=== PATIENT | male | born 1985 | race Caucasian/White ===

== ENCOUNTER 2020-05-08 14:24 | Emergency (ER) | payer BC, SELFPAY ==
[2020-05-08 14:25] VITALS: BP 149/93; PULSE 88; RESP 18; TEMP 36.8; O2SAT 97; BMI 27.7
--- NOTE | 2020-05-08 15:01 | HMH.EDGENADL ---
ED Disposition Clinical Impression: Dizziness Upper respiratory infection Qualifiers: URI type: unspecified viral URI Qualified Code(s): J06.9 - Acute upper respiratory infection, unspecified Disposition: Home, Self-Care Condition on Discharge: Good Instructions: DI for Viral Upper Respiratory Infection -- Adult Additional Instructions: [id number] cold medications as needed. Follow-up with primary care provider if not improving in 4 to 5 days. Quarantine yourself until you obtain your COVID-19 test result. You will be called with the result. Referrals: PCP,No [Primary Care Provider] - - Critical Care Critical Care Time: No Attestation: On , the high probability of a clinically significant, sudden or life threatening deterioration of the following system(s) required my full and direct attention, intervention and personal management. The time I documented below is in addition to time spent performing reported procedures but includes the following listed in this critical care notation. Medical Decision Making - Pipo Inquiry Pt receiving controlled substance: No Vital Signs: 05/08/20 14:25 05/08/20 15:50 05/08/20 16:00 Temperature 98.2 F Temperature Source Oral Pulse Rate [Left Radial] 88 74 64 Respiratory Rate 18 Blood Pressure [Right Arm] 149/93 H 133/79 128/73 Blood Pressure Mean [Right Arm] 111 97 91 Blood Pressure Source [Right Arm] Automatic Cuff Automatic Cuff Automatic Cuff Blood Pressure Position [Right Arm] Sitting Sitting 02 Sat by Pulse Oximetry 97 94 L 94 L Oxygen Delivery Method Room Air Room Air Room Air - Lab Data Lab Results 05/08/20 15:30: WBC 7.6, RBC 5.47, Hgb 15.2, Hct 47.0, MCV 85.9, MCH 27.8, MCHC 32.4, RDW 13.5, Plt Count 219, MPV 7.8, Neut % (Auto) 59.8, Lymph % (Auto) 32.2, [place] % (Auto) 6.5, Eos % (Auto) 1.0, Baso % (Auto) 0.5, Neut # (Auto) 4.5, Lymph # (Auto) 2.5, [place] # (Auto) 0.5, Eos # (Auto) 0.1, Baso # (Auto) 0.0 05/08/20 15:30: Sodium 138, Potassium 4.3, Chloride 104, Carbon Dioxide 27, Anion Gap 11.3, BUN 15, Creatinine 0.90, Estimated Creat Clear 157, Estimated GFR 97, Est GFR ( Amer) 118, Glucose 113 H, Calcium 9.3 Result diagrams: 05/08/20 15:30 05/08/20 15:30 Orders (Tests/Meds): ORDERS Category Date Time Status Covid-19 Nasal PCR ([facility]) Routine Lab 05/08/20 15:30 Received - Radiology Data #1 Image(s): Chest Image Reviewed: Yes I have reviewed radiologist's interpretation PROCEDURE: XR CHEST 2V CLINICAL HISTORY: cough COMPARISON: No exams were available for comparison FINDINGS: The cardiomediastinal silhouette and pulmonary vascularity are within normal limits. The lungs are clear without infiltrates, suspicious nodules, or pleural effusions. No acute bony abnormalities. IMPRESSION: No acute findings. Dictated by: Lonnie Arias MD 05/08/2020 15:45 Lonnie Arias MD in [place] 05/08/2020 15:45 - ECG Data Tracing #1 EKG interpreted by Jeff Loredo MD: Rhythm: sinus Rate: 75 [place]: normal Ectopy: none Conduction: normal ST Segment Changes: none T Wave Changes: none Q Waves: none No evidence of acute ischemia or injury General Adult HPI - General Chief complaint: Upper Respiratory Infection Stated complaint: shaky, dizzy, nausea Time Seen by Provider: 05/08/20 15:02 Mode of Arrival: Family Vehicle Limitations: No Limitations Description of Symptoms (Recalled from ER Triage Doc. by RN): Patient reports sinus drainage and cough x 3 days, states this am he woke up and felt dizzy. - History of Present Illness HPI narrative: Says yesterday he developed sinus drainage. Today it moved into his chest and he has been coughing. He says he was standing up and had a coughing spell and began seeing spots, feeling dizzy. Since then he says his vision is intermittently hazy and he feels intermittently dizzy. Currently denies chest pain, but says he has had intermittent disc
--- NOTE | 2020-05-08 15:32 | ECG_ITS ---
APPROVED REPORT Exam: Resting ECG HR:75 bpm ECG Measurements Heart Rate 75 AXES VA 158 P 44 QRSd 88 QRS 57 QT 360 T 21 QTc 402 Conclusion Normal sinus rhythm Normal ECG Electronically signed by : Dino Dsouza, 05/09/2020 08:38:38
[2020-05-08 15:43] LABS: Basophils % 0.5 % (0.1-2.0); Eosinophils # 0.1 K/mm3 (0.0-0.4); Hemoglobin 15.2 g/dL (14.1-18.0); Lymphocytes # 2.5 K/mm3 (0.7-4.5); Lymphocytes % 32.2 % (10-50); Mean Corpuscular HGB Conc 32.4 g/dL (31.8-35.4); Mean Corpuscular Hemoglobin 27.8 pg (27.0-31.2); Mean Corpuscular Volume 85.9 fl (80-94); Mean Platelet Volume 7.8 fl (7.4-10.4); Monocytes # 0.5 K/mm3 (0.1-1.0); Monocytes % 6.5 % (1.7-9.3); Neutrophils # 4.5 K/mm3 (1.8-7.8); Neutrophils % 59.8 % (37.0-80.0); Platelet Count 219 K/mm3 (142-424); Red Blood Count 5.47 M/mm3 (4.60-6.20); Red Cell Distribution Width 13.5 % (11.5-17.5); White Blood Count 7.6 K/mm3 (4.8-10.8)
[2020-05-08 15:50] VITALS: BP 133/79; PULSE 74; O2SAT 94
[2020-05-08 15:55] LABS: Anion Gap 11.3 mEq/L (5-15); Blood Urea Nitrogen 15 mg/dl (9-20); Calcium 9.3 mg/dl (8.4-10.2); Carbon Dioxide 27 mmol/L (22.0-30.0); Chloride 104 mmol/L (98-107); Creatinine Clearance Estimated 157 mL/min (50-200); Estimated Glomerular Filt Rate 97 ml/min (>60); GFR (African American) 118 ML/MIN (>60); Glucose 113 mg/dl (74-100); Potassium 4.3 mmoL/L (3.5-5.1); Sodium 138 mmol/L (136-145)
[2020-05-08 16:00] VITALS: BP 128/73; PULSE 64; O2SAT 94
[2020-05-08 16:28] VITALS: BP 124/79; PULSE 83; RESP 20; TEMP 36.7; O2SAT 98
== END 2020-05-08 16:29 | disposition home or self-care (01) ==
PROVIDERS: Emergency Provider Emergency Medicine
DX: Z20.822 Contact with and (suspected) exposure to COVID-19 (principal); J06.9 Acute upper respiratory infection, unspecified
CPT/HCPCS: 71046; 80048; 85025; 93005; 99283; U0003

== ENCOUNTER 2020-06-25 21:06 | Emergency (ER) | payer BC, SELFPAY ==
[2020-06-25 21:04] VITALS: BP 127/78; PULSE 82; RESP 22; TEMP 36.9; O2SAT 100; BMI 28.5
--- NOTE | 2020-06-25 21:17 | XR_ITS ---
PROCEDURE INFORMATION: Exam: XR Chest Exam date and time: 06/25/2020 9:17 PM Age: 34 years old Clinical indication: Type not specified; Patient HX: Chest pain and anxiety. Smoker. ; Additional info: Cp TECHNIQUE: Imaging protocol: XR of the chest. Views: 2 views. COMPARISON: CR XR CHEST 2V 05/08/2020 3:02 PM FINDINGS: Lungs: Unremarkable. No consolidation. Pleural spaces: Unremarkable. No pleural effusion. No pneumothorax. Heart/Mediastinum: Unremarkable. No cardiomegaly. Bones/joints: Unremarkable. IMPRESSION: No acute findings.
--- NOTE | 2020-06-25 21:18 | ECG_ITS ---
APPROVED REPORT Exam: Resting ECG HR:79 bpm ECG Measurements Heart Rate 79 AXES GA 154 P 53 QRSd 86 QRS 82 QT 374 T 9 QTc 428 Conclusion Normal sinus rhythm Normal ECG Electronically signed by : Dino Dsouza, 06/27/2020 21:22:11
[2020-06-25 21:25] LABS: Chloride 100 mmol/L (98-107)
[2020-06-25 21:26] LABS: Potassium 4.1 mmoL/L (3.5-5.1)
[2020-06-25 21:27] LABS: Basophils # 0.1 K/mm3 (0-0.2); Basophils % 0.7 % (0.1-2.0); Eosinophils # 0.1 K/mm3 (0.0-0.4); Eosinophils % 0.5 % (0.1-12.0); Hematocrit 44.3 % (42.0-52.0); Lymphocytes # 7.5 K/mm3 (0.7-4.5); Lymphocytes % 60.1 % (10-50); Mean Corpuscular HGB Conc 33.8 g/dL (31.8-35.4); Mean Corpuscular Hemoglobin 27.9 pg (27.0-31.2); Mean Corpuscular Volume 82.4 fl (80-94); Mean Platelet Volume 7.5 fl (7.4-10.4); Monocytes # 0.8 K/mm3 (0.1-1.0); Monocytes % 6.3 % (1.7-9.3); Neutrophils # 4.1 K/mm3 (1.8-7.8); Neutrophils % 32.5 % (37.0-80.0); Platelet Count 264 K/mm3 (142-424); Red Blood Count 5.37 M/mm3 (4.60-6.20); Red Cell Distribution Width 13.6 % (11.5-17.5); White Blood Count 12.5 K/mm3 (4.8-10.8)
[2020-06-25 21:28] LABS: Blood Urea Nitrogen 19 mg/dl (9-20); Carbon Dioxide 24 mmol/L (22.0-30.0); Creatinine Clearance Estimated 142 mL/min (50-200); Estimated Glomerular Filt Rate 86 ml/min (>60); GFR (African American) 104 ML/MIN (>60); MANUAL DIFFERENTIAL MANUAL DIFFERENTIAL (MANUAL DIFF)
[2020-06-25 21:29] LABS: Alanine Aminotransferase 183 U/L (12-78); Alkaline Phosphatase 89 U/L (38-126); Aspartate Amino Transferase 86 U/L (17-59); Bilirubin,Direct 0.1 mg/dl (0.0-0.4); Bilirubin,Indirect 0.6 mg/dL (0.0-0.9); Bilirubin,Total 0.7 mg/dl (0.2-1.3); Bilirubin,Unconjugated 0.6 mg/dL (0.0-1.1); Calcium 9.4 mg/dl (8.4-10.2); Glucose 122 mg/dl (74-100); Total Protein,Serum 8.2 g/dl (6.3-8.2)
[2020-06-25 21:34] LABS: C-Reactive Protein 4.2 mg/L (0-4)
[2020-06-25 21:38] LABS: Lymphocytes % 45 % (10-50); Monocytes % 3 % (2-9); Neutrophils % 27 % (42-76); Platelet Estimate Normal; RBC Morphology Normal; Total Cells Counted 100
[2020-06-25 21:49] LABS: Troponin I < 0.01 ng/ml (0.00-0.034)
[2020-06-25 21:51] LABS: Procalcitonin 0.091 ng/mL (0.0-2.0)
--- NOTE | 2020-06-25 21:51 | HMH.EDCP ---
ED Disposition Clinical Impression: Atypical chest pain Disposition: Home, Self-Care Condition on Discharge: Good Instructions: DI for Atypical Chest Pain Additional Instructions: see pcp for follow up Referrals: PCP,No [Primary Care Provider] - - Critical Care Critical Care Time: No Attestation: On 06/25/20, the high probability of a clinically significant, sudden or life threatening deterioration of the following system(s) required my full and direct attention, intervention and personal management. The time I documented below is in addition to time spent performing reported procedures but includes the following listed in this critical care notation. Medical Decision Making - Medical Records Medical records reviewed: Yes: I reviewed the patient's medical records. - Pipo Inquiry Pt receiving controlled substance: No Vital Signs: 06/25/20 21:04 Temperature 98.4 F Temperature Source Oral Pulse Rate [Right Radial] 82 Respiratory Rate 22 Blood Pressure [Right Arm] 127/78 Blood Pressure Mean [Right Arm] 94 Blood Pressure Source [Right Arm] Automatic Cuff Blood Pressure Position [Right Arm] Sitting 02 Sat by Pulse Oximetry 100 Oxygen Delivery Method Room Air - Lab Data Lab results reviewed: Yes: I reviewed the patient's lab results. Lab Results 06/25/20 21:04: WBC 12.5 H, RBC 5.37, Hgb 15.0, Hct 44.3, MCV 82.4, MCH 27.9, MCHC 33.8, RDW 13.6, Plt Count 264, MPV 7.5, Neut % (Auto) 32.5 L, Lymph % (Auto) 60.1 H, [place] % (Auto) 6.3, Eos % (Auto) 0.5, Baso % (Auto) 0.7, Neut # (Auto) 4.1, Lymph # (Auto) 7.5 H, [place] # (Auto) 0.8, Eos # (Auto) 0.1, Baso # (Auto) 0.1, Total Counted 100, Neutrophils % (Manual) 27 L, Lymphocytes % (Manual) 45, Atypical Lymphs % 25.0, Monocytes % (Manual) 3, Platelet Estimate Normal, RBC Morphology Normal, ESR 6 06/25/20 21:04: Sodium 136, Potassium 4.1, Chloride 100, Carbon Dioxide 24, Anion Gap 16.1 H, BUN 19, Creatinine 1.00, Estimated Creat Clear 142, Estimated GFR 86, Est GFR ( Amer) 104, Glucose 122 H, Calcium 9.4, Troponin I < 0.01, C-Reactive Protein 4.2 H 06/25/20 21:04: Procalcitonin 0.091 06/25/20 21:04: Total Bilirubin 0.7, Direct Bilirubin 0.1, Conjugated Bilirubin 0.0, Indirect Bilirubin 0.6, Unconjugated Bilirubin 0.6, AST 86 H, ALT 183 H, Alkaline Phosphatase 89, Total Protein 8.2, Albumin 5.0 Result diagrams: 06/25/20 21:04 06/25/20 21:04 Orders (Tests/Meds): ED MEDICATIONS Generic Name Dose Route Start Last Admin Trade Name Freq PRN Reason Stop Dose Admin Sodium Chloride 1,000 mls @ 999 mls/hr 06/25/20 21:30 Sod Chlor 0.9% 1000ml Bag IV 06/25/20 22:30 .Q1H1M [facility]RA Sodium Chloride 8 ml 06/25/20 21:26 Sodium Chloride 0.9% 10ml Vial IV 07/25/20 21:25 NEEDED PRN dilute pepcid Discontinued Medications Generic Name Dose Route Start Last Admin Trade Name Freq PRN Reason Stop Dose Admin Famotidine 20 mg 06/25/20 21:26 06/25/20 21:34 Famotidine 20mg/2ml Vial IV 06/25/20 21:27 20 mg ONCE ONE Administration Ketorolac Tromethamine 30 mg 06/25/20 21:17 06/25/20 21:20 Ketorolac 30mg/Ml Vial IV 06/25/20 21:18 30 mg ONCE ONE Administration Metoclopramide HCl 10 mg 06/25/20 21:26 06/25/20 21:34 Metoclopramide Hcl 10mg/2ml Vial IVP 06/25/20 21:27 10 mg ONCE ONE Administration ORDERS Category Date Time Status Troponin I Q3H Lab 06/26/20 00:30 Ordered Troponin I Q3H Lab 06/26/20 03:30 Ordered - Radiology Data #1 Image(s): Chest Image Reviewed: Yes I reviewed the patient's radiology image Preliminary Findings: Normal/NAD - ECG Data Tracing #1 Normal Sinus Rhythm: Yes Ischemic changes: non-specific ST-T wave changes Medical Decision Narrative: ekg and card enz ok and hx not suggestive of card - will need op eval Chest Pain HPI - General Chief Complaint: Chest Pain Stated Complaint: Chest Pain Time Seen by Provider: 06/25/20 21:15 Mode of Arrival: EMS [facility]
[2020-06-25 22:00] LABS: Erythrocyte Sedimentation Rate 6 mm/hr (0-15)
[2020-06-25 22:24] LABS: Anion Gap 16.1 mEq/L (5-15); Sodium 136 mmol/L (136-145)
[2020-06-25 22:48] VITALS: BP 121/75; PULSE 73; RESP 18; TEMP 36.8
== END 2020-06-25 22:50 | disposition home or self-care (01) ==
PROVIDERS: Emergency Provider Emergency Medicine
DX: R07.89 Other chest pain (principal); F41.9 Anxiety disorder, unspecified; Z79.899 Other long term (current) drug therapy
CPT/HCPCS: 71046; 80048; 80076; 84145; 84484; 85007; 85025; 85651; 86140; 93005; 96365; 96375; 99283

== ENCOUNTER 2020-06-28 03:43 | Emergency (ER) | payer BC, SELFPAY ==
[2020-06-28] VITALS (8 sets, daily range): BP systolic 119–179; BP diastolic 75–106; PULSE 65–92; RESP 16–18; TEMP 36.9; O2SAT 98–100; BMI 27.7
--- NOTE | 2020-06-28 04:06 | XR_ITS ---
PROCEDURE INFORMATION: Exam: XR Chest Exam date and time: 06/28/2020 4:06 AM Age: 34 years old Clinical indication: Shortness of breath and other: Anxiety; Patient HX: Short of breath anxiety; Additional info: SOA TECHNIQUE: Imaging protocol: XR of the chest. Views: 2 views. COMPARISON: CR XR CHEST 2V 06/25/2020 9:20 PM FINDINGS: Lungs: Unremarkable. No consolidation. Pleural spaces: Unremarkable. No pleural effusion. No pneumothorax. Heart/Mediastinum: Unremarkable. No cardiomegaly. Bones/joints: Unremarkable. IMPRESSION: No acute findings.
[2020-06-28 04:25] LABS: Basophils # 0.1 K/mm3 (0-0.2); Basophils % 0.6 % (0.1-2.0); Eosinophils # 0.1 K/mm3 (0.0-0.4); Eosinophils % 1.3 % (0.1-12.0); Hematocrit 42.3 % (42.0-52.0); Hemoglobin 14.2 g/dL (14.1-18.0); Lymphocytes # 4.9 K/mm3 (0.7-4.5); Lymphocytes % 59.8 % (10-50); Mean Corpuscular HGB Conc 33.6 g/dL (31.8-35.4); Mean Corpuscular Hemoglobin 27.9 pg (27.0-31.2); Mean Corpuscular Volume 82.9 fl (80-94); Mean Platelet Volume 7.5 fl (7.4-10.4); Monocytes # 0.6 K/mm3 (0.1-1.0); Monocytes % 6.9 % (1.7-9.3); Neutrophils # 2.6 K/mm3 (1.8-7.8); Neutrophils % 31.5 % (37.0-80.0); Platelet Count 227 K/mm3 (142-424); Red Cell Distribution Width 13.5 % (11.5-17.5); White Blood Count 8.2 K/mm3 (4.8-10.8)
[2020-06-28 04:32] LABS: MANUAL DIFFERENTIAL MANUAL DIFFERENTIAL (MANUAL DIFF)
[2020-06-28 04:33] LABS: Alanine Aminotransferase 109 U/L (12-78); Albumin Level 4.5 g/dl (3.5-5.0); Albumin/Globulin Ratio 1.4 (1.1-1.8); Alkaline Phosphatase 87 U/L (38-126); Aspartate Amino Transferase 61 U/L (17-59); Bilirubin,Total 0.3 mg/dl (0.2-1.3); Blood Urea Nitrogen 15 mg/dl (9-20); Calcium 9.2 mg/dl (8.4-10.2); Carbon Dioxide 26 mmol/L (22.0-30.0); Chloride 103 mmol/L (98-107); Creatinine Clearance Estimated 157 mL/min (50-200); Estimated Glomerular Filt Rate 97 ml/min (>60); GFR (African American) 118 ML/MIN (>60); Globulin 3.2 g/dL (1.3-3.2); Glucose 99 mg/dl (74-100); Sodium 137 mmol/L (136-145); Total Protein,Serum 7.7 g/dl (6.3-8.2)
[2020-06-28 04:38] LABS: C-Reactive Protein 2.7 mg/L (0-4)
[2020-06-28 04:52] LABS: Procalcitonin 0.067 ng/mL (0.0-2.0)
--- NOTE | 2020-06-28 05:01 | HMH.EDANX ---
ED Disposition Clinical Impression: Acute anxiety Disposition: Home, Self-Care Condition on Discharge: Good Instructions: Anxiety and Panic Attacks (Alternative Therapy) Additional Instructions: see pcp for follow up Referrals: Hamzah Sibley MD [Primary Care Provider] - - Critical Care Critical Care Time: No Attestation: On 06/28/20, the high probability of a clinically significant, sudden or life threatening deterioration of the following system(s) required my full and direct attention, intervention and personal management. The time I documented below is in addition to time spent performing reported procedures but includes the following listed in this critical care notation. Medical Decision Making - Medical Records Medical records reviewed: Yes: I reviewed the patient's medical records. - Pipo Inquiry Pt receiving controlled substance: No Vital Signs: 06/28/20 03:53 06/28/20 03:54 06/28/20 04:04 Temperature 98.5 F Temperature Source Oral Pulse Rate 68 71 Pulse Rate [Left] 92 H Respiratory Rate 18 Blood Pressure 119/80 179/98 H Blood Pressure [Right Arm] 119/80 Blood Pressure Mean 90 125 Blood Pressure Mean [Right Arm] 93 Blood Pressure Source [Right Arm] Automatic Cuff Blood Pressure Position [Right Arm] Sitting 02 Sat by Pulse Oximetry 100 99 98 Oxygen Delivery Method Room Air 06/28/20 04:30 06/28/20 04:55 06/28/20 05:00 Temperature Temperature Source Pulse Rate 65 65 70 Pulse Rate [Left] Respiratory Rate Blood Pressure 176/106 H 132/84 148/86 H Blood Pressure [Right Arm] Blood Pressure Mean 125 103 102 Blood Pressure Mean [Right Arm] Blood Pressure Source [Right Arm] Blood Pressure Position [Right Arm] 02 Sat by Pulse Oximetry 100 100 Oxygen Delivery Method Room Air - Lab Data Lab results reviewed: Yes: I reviewed the patient's lab results. Lab Results 06/28/20 04:18: WBC 8.2 D, RBC 5.10, Hgb 14.2, Hct 42.3, MCV 82.9, MCH 27.9, MCHC 33.6, RDW 13.5, Plt Count 227, MPV 7.5, Neut % (Auto) 31.5 L, Lymph % (Auto) 59.8 H, [place] % (Auto) 6.9, Eos % (Auto) 1.3, Baso % (Auto) 0.6, Neut # (Auto) 2.6, Lymph # (Auto) 4.9 H, [place] # (Auto) 0.6, Eos # (Auto) 0.1, Baso # (Auto) 0.1, Total Counted 100, Neutrophils % (Manual) 28 L, Lymphocytes % (Manual) 66 H, Monocytes % (Manual) 5, Eosinophils % (Manual) 1, Platelet Estimate Normal, RBC Morphology Not Reportable, Stomatocytes 1+, ESR 3 06/28/20 04:18: Sodium 137, Potassium 4.0, Chloride 103, Carbon Dioxide 26, Anion Gap 12.0, BUN 15, Creatinine 0.90, Estimated Creat Clear 157, Estimated GFR 97, Est GFR ( Amer) 118, Glucose 99, Calcium 9.2, Total Bilirubin 0.3, AST 61 H D, ALT 109 H D, Alkaline Phosphatase 87, C-Reactive Protein 2.7 D, Total Protein 7.7, Albumin 4.5, Globulin 3.2, Albumin/Globulin Ratio 1.4, Procalcitonin 0.067 Result diagrams: 06/28/20 04:18 06/28/20 04:18 Orders (Tests/Meds): ED MEDICATIONS Generic Name Dose Route Start Last Admin Trade Name Freq PRN Reason Stop Dose Admin Sodium Chloride 1,000 mls @ 999 mls/hr 06/28/20 04:15 06/28/20 04:13 Sod Chlor 0.9% 1000ml Bag IV 06/28/20 05:15 999 mls/hr .Q1H1M [facility] Administration Discontinued Medications Generic Name Dose Route Start Last Admin Trade Name Freq PRN Reason Stop Dose Admin Methylprednisolone Sodium Succinate 125 mg 06/28/20 04:06 06/28/20 04:13 Methylprednisolone Sod Succ 125mg Vial IV 06/28/20 04:07 125 mg ONCE ONE Administration - Radiology Data #1 Image(s): Chest Image Reviewed: Yes I reviewed the patient's radiology image Preliminary Findings: Normal/NAD Medical Decision Narrative: will need op follow up Anxiety HPI - General Chief Complaint: Anxiety Stated Complaint: difficulty breathing,fells like throat is closing Time Seen by Provider: 06/28/20 04:15 Mode of Arrival: Ambulatory Source of Information: Patient, Medical Record Limitations: No Limita
[2020-06-28 05:03] LABS: Erythrocyte Sedimentation Rate 3 mm/hr (0-15)
[2020-06-28 05:20] LABS: Eosinophils % 1 % (0-3); Lymphocytes % 66 % (10-50); Monocytes % 5 % (2-9); Neutrophils % 28 % (42-76); Platelet Estimate Normal; Stomatocytes 1+; Total Cells Counted 100
== END 2020-06-28 05:42 | disposition home or self-care (01) ==
PROVIDERS: Emergency Provider Emergency Medicine; PCP Emergency Medicine
DX: F41.0 Panic disorder [episodic paroxysmal anxiety] (principal)
CPT/HCPCS: 71046; 80053; 84145; 85007; 85025; 85651; 86140; 96365; 96375; 99282

== ENCOUNTER 2020-11-20 03:03 | Emergency (ER) | payer BC, SELFPAY ==
[2020-11-20 03:04] VITALS: BP 128/83; PULSE 71; RESP 16; TEMP 36.7; O2SAT 98; BMI 24.4
--- NOTE | 2020-11-20 03:33 | CT_ITS ---
PROCEDURE INFORMATION: Exam: CT Head Without Contrast Exam date and time: 11/20/2020 3:33 AM Age: 35 years old Clinical indication: Other: Ear ringing; Patient HX: Hands drawing up TECHNIQUE: Imaging protocol: Computed tomography of the head without contrast. 3D rendering (Not supervised by radiologist): MIP and/or 3D reconstructed images were created by the technologist. Radiation optimization: All CT scans at this facility use at least one of these dose optimization techniques: automated exposure control; mA and/or kV adjustment per patient size (includes targeted exams where dose is matched to clinical indication); or iterative reconstruction. COMPARISON: No relevant prior studies available. FINDINGS: Brain: Normal. No hemorrhage. Unremarkable white matter. No mass effect. Cerebral ventricles: No ventriculomegaly. Paranasal sinuses: Visualized sinuses are unremarkable. No fluid levels. Mastoid air cells: Visualized mastoid air cells are well aerated. Vasculature: Intraranial artery density is normal. Bones/joints: Unremarkable. No acute fracture. Soft tissues: Unremarkable. IMPRESSION: No acute intracranial abnormality.
[2020-11-20 03:35] LABS: Amphetamine/Metha Screen,Urine Positive ng/ml (<1000)
[2020-11-20 03:36] LABS: Barbiturates Screen,Urine Negative ng/ml (<200); Benzodiazepines Screen,Urine Negative ng/ml (<200)
[2020-11-20 03:37] LABS: Cannabinoid Screen,Urine Negative ng/ml (<50)
[2020-11-20 03:38] LABS: Cocaine Screen,Urine Negative ng/ml (<300); Methadone Screen,Urine Negative ng/ml (<300)
[2020-11-20 03:39] LABS: Opiate Screen,Urine Positive ng/ml (<300)
[2020-11-20 03:40] LABS: Phencyclidine Screen,Urine Negative ng/ml (<25)
[2020-11-20 03:46] LABS: Basophils # 0.1 K/mm3 (0-0.2); Basophils % 1.2 % (0.1-2.0); Eosinophils # 0.1 K/mm3 (0.0-0.4); Eosinophils % 1.7 % (0.1-12.0); Hematocrit 45.9 % (42.0-52.0); Hemoglobin 14.9 g/dL (14.1-18.0); Lymphocytes # 4.5 K/mm3 (0.7-4.5); Lymphocytes % 61.5 % (10-50); Mean Corpuscular HGB Conc 32.5 g/dL (31.8-35.4); Mean Corpuscular Hemoglobin 28.5 pg (27.0-31.2); Mean Corpuscular Volume 87.7 fl (80-94); Mean Platelet Volume 7.9 fl (7.4-10.4); Monocytes # 0.3 K/mm3 (0.1-1.0); Monocytes % 4.7 % (1.7-9.3); Neutrophils # 2.2 K/mm3 (1.8-7.8); Neutrophils % 30.9 % (37.0-80.0); Platelet Count 271 K/mm3 (142-424); Red Blood Count 5.24 M/mm3 (4.60-6.20); White Blood Count 7.2 K/mm3 (4.8-10.8)
[2020-11-20 03:48] LABS: MANUAL DIFFERENTIAL MANUAL DIFFERENTIAL (MANUAL DIFF)
[2020-11-20 03:53] LABS: Alanine Aminotransferase 18 U/L (12-78); Albumin Level 4.1 g/dl (3.5-5.0); Albumin/Globulin Ratio 1.2 (1.1-1.8); Alkaline Phosphatase 81 U/L (38-126); Anion Gap 12.1 mEq/L (5-15); Aspartate Amino Transferase 28 U/L (17-59); Bilirubin,Total 0.2 mg/dl (0.2-1.3); Blood Urea Nitrogen 14 mg/dl (9-20); Calcium 8.7 mg/dl (8.4-10.2); Carbon Dioxide 30 mmol/L (22.0-30.0); Chloride 104 mmol/L (98-107); Creatinine Clearance Estimated 124 mL/min (50-200); Estimated Glomerular Filt Rate 86 ml/min (>60); GFR (African American) 103 ML/MIN (>60); Globulin 3.3 g/dL (1.3-3.2); Glucose 132 mg/dl (74-100); Potassium 4.1 mmoL/L (3.5-5.1); Sodium 142 mmol/L (136-145); Total Protein,Serum 7.4 g/dl (6.3-8.2)
[2020-11-20 03:59] LABS: C-Reactive Protein 2.2 mg/L (0-4)
--- NOTE | 2020-11-20 03:59 | HMH.EDNEU ---
ED Disposition Clinical Impression: Abnormal drug screen Parasomnia Qualifiers: Parasomnia type: unspecified parasomnia Qualified Code(s): G47.50 - Parasomnia, unspecified Disposition: Home, Self-Care Condition on Discharge: Good Instructions: Parasomnias: Things That Go Bump in the Night Additional Instructions: see pcp for follow up Referrals: Hamzah Sibley MD [Primary Care Provider] - - Critical Care Critical Care Time: No Attestation: On 11/20/20, the high probability of a clinically significant, sudden or life threatening deterioration of the following system(s) required my full and direct attention, intervention and personal management. The time I documented below is in addition to time spent performing reported procedures but includes the following listed in this critical care notation. Medical Decision Making - Medical Records Medical records reviewed: Yes: I reviewed the patient's medical records. - Pipo Inquiry Pt receiving controlled substance: No Vital Signs: 11/20/20 03:04 Temperature 98.1 F Temperature Source Oral Pulse Rate [Left] 71 Respiratory Rate 16 Blood Pressure [Right Arm] 128/83 Blood Pressure Mean [Right Arm] 98 Blood Pressure Source [Right Arm] Automatic Cuff Blood Pressure Position [Right Arm] Supine 02 Sat by Pulse Oximetry 98 Oxygen Delivery Method Room Air - Lab Data Lab results reviewed: Yes: I reviewed the patient's lab results. Lab Results 11/20/20 03:10: Urine Opiates Screen Positive H, Urine Methadone Screen Negative, Ur Barbituates Screen Negative, Ur Phencyclidine Scrn Negative, Ur Amphetamines Screen Positive H, U Benzodiazepines Scrn Negative, Urine Cocaine Screen Negative, U Marijuana (THC) Screen Negative 11/20/20 03:30: WBC 7.2, RBC 5.24, Hgb 14.9, Hct 45.9, MCV 87.7, MCH 28.5, MCHC 32.5, RDW 13.0, Plt Count 271, MPV 7.9, Neut % (Auto) 30.9 L, Lymph % (Auto) 61.5 H, [place] % (Auto) 4.7, Eos % (Auto) 1.7, Baso % (Auto) 1.2, Neut # (Auto) 2.2, Lymph # (Auto) 4.5, [place] # (Auto) 0.3, Eos # (Auto) 0.1, Baso # (Auto) 0.1, Total Counted 100, Neutrophils % (Manual) 28 L, Lymphocytes % (Manual) 69 H, Monocytes % (Manual) 1 L, Eosinophils % (Manual) 2, Platelet Estimate Normal, Stomatocytes 1+ 11/20/20 03:30: Sodium 142, Potassium 4.1, Chloride 104, Carbon Dioxide 30, Anion Gap 12.1, BUN 14, Creatinine 1.00, Estimated Creat Clear 124, Estimated GFR 86, Est GFR ( Amer) 103, Glucose 132 H, Calcium 8.7, Total Bilirubin 0.2, AST 28, ALT 18, Alkaline Phosphatase 81, C-Reactive Protein 2.2, Total Protein 7.4, Albumin 4.1, Globulin 3.3 H, Albumin/Globulin Ratio 1.2 Result diagrams: 11/20/20 03:30 11/20/20 03:30 Orders (Tests/Meds): ED MEDICATIONS Generic Name Dose Route Start Last Admin Trade Name Freq PRN Reason Stop Dose Admin Sodium Chloride 1,000 mls @ 999 mls/hr 11/20/20 03:45 11/20/20 03:36 Sod Chlor 0.9% 1000ml Bag IV 11/20/20 04:45 999 mls/hr .Q1H1M [facility] Administration Discontinued Medications Generic Name Dose Route Start Last Admin Trade Name Freq PRN Reason Stop Dose Admin Sodium Chloride 500 mls @ 999 mls/hr 11/20/20 03:30 11/20/20 03:36 Sod Chlor 0.9% 1000ml Bag IV 11/20/20 04:00 Not Given .Q31M [facility] ORDERS Category Date Time Status C-Reactive Protein Stat Lab 11/20/20 03:30 Results Complete Blood Count Auto Diff Stat Lab 11/20/20 03:30 Results Comprehensive Metabolic Panel Stat Lab 11/20/20 03:30 Results Erythrocyte Sedimentation Rate Stat Lab 11/20/20 03:30 Results Procalcitonin Stat Lab 11/20/20 03:30 Results - CT Data CT Scan: Head Time Received: 04:[address] Reviewed: Yes: I have viewed the radiologist's interpretation Preliminary Findings: Normal/NAD Medical Decision Narrative: has parasomnia episode at baseline but abn uds Neuro HPI - General Chief Complaint: Ear Stated Complaint: ears ringing Time Seen by Provider: 11/20/20 04:00 Mode of Arrival: Ambulatory Source of [employer]
[2020-11-20 04:09] LABS: Eosinophils % 2 % (0-3); Lymphocytes % 69 % (10-50); Monocytes % 1 % (2-9); Neutrophils % 28 % (42-76); Total Cells Counted 100
[2020-11-20 04:10] LABS: Platelet Estimate Normal; Stomatocytes 1+
[2020-11-20 04:12] LABS: Procalcitonin 0.045 ng/mL (0.0-2.0)
[2020-11-20 04:20] VITALS: BP 121/70; PULSE 59; RESP 18; TEMP 36.8; O2SAT 99
[2020-11-20 04:22] LABS: Erythrocyte Sedimentation Rate 7 mm/hr (0-15)
== END 2020-11-20 04:46 | disposition home or self-care (01) ==
PROVIDERS: Emergency Provider Emergency Medicine; PCP Emergency Medicine
DX: G47.50 Parasomnia, unspecified (principal); R89.2 Abnormal level of other drugs, medicaments and biological substances in specimens from other organs, systems and tissues; K21.9 Gastro-esophageal reflux disease without esophagitis; F41.9 Anxiety disorder, unspecified; F17.210 Nicotine dependence, cigarettes, uncomplicated; Z79.899 Other long term (current) drug therapy
CPT/HCPCS: 70450; 80053; 80305; 84145; 85007; 85025; 85651; 86140; 96365; 99283

== ENCOUNTER → 2021-07-30 15:55 | Outpatient (CLI) | payer BC, SELFPAY ==
[2021-07-30 15:44] LABS: Amphetamine/Metha Screen,Urine Negative ng/ml (<1000); Barbiturates Screen,Urine Negative ng/ml (<200)
[2021-07-30 15:46] LABS: Benzodiazepines Screen,Urine Negative ng/ml (<200)
[2021-07-30 15:47] LABS: Cannabinoid Screen,Urine Positive ng/ml (<50)
[2021-07-30 15:48] LABS: Cocaine Screen,Urine Negative ng/ml (<300); Methadone Screen,Urine Negative ng/ml (<300)
[2021-07-30 15:49] LABS: Opiate Screen,Urine Positive ng/ml (<300); Phencyclidine Screen,Urine Negative ng/ml (<25)
== END ==
PROVIDERS: PCP Emergency Medicine; Visit Provider Emergency Medicine
DX: F19.11 Other psychoactive substance abuse, in remission (principal)
CPT/HCPCS: 80305

== ENCOUNTER → 2022-07-22 08:50 | Outpatient (CLI) | payer BC, SELFPAY ==
[2022-07-22 13:25] LABS: Basophils % 0.5 % (0.1-2.0); Eosinophils # 0.2 K/mm3 (0.0-0.4); Eosinophils % 2.7 % (0.1-12.0); Hematocrit 39.5 % (42.0-52.0); Lymphocytes # 2.2 K/mm3 (0.7-4.5); Lymphocytes % 37.5 % (10-50); Mean Corpuscular HGB Conc 32.8 g/dL (31.8-35.4); Mean Corpuscular Hemoglobin 28.8 pg (27.0-31.2); Mean Corpuscular Volume 87.7 fl (80-94); Monocytes # 0.5 K/mm3 (0.1-1.0); Monocytes % 8.7 % (1.7-9.3); Neutrophils % 50.7 % (37.0-80.0); Platelet Count 298 K/mm3 (142-424); Red Blood Count 4.51 M/mm3 (4.60-6.20); Red Cell Distribution Width 13.8 % (11.5-17.5)
[2022-07-22 13:44] LABS: Alanine Aminotransferase 35 U/L (12-78); Albumin Level 4.4 g/dl (3.5-5.0); Albumin/Globulin Ratio 1.5 (1.1-1.8); Alkaline Phosphatase 94 U/L (38-126); Anion Gap 18.5 mEq/L (5-15); Aspartate Amino Transferase 39 U/L (17-59); Bilirubin,Total 0.4 mg/dl (0.2-1.3); Blood Urea Nitrogen 19 mg/dl (9-20); Calcium 8.6 mg/dl (8.4-10.2); Carbon Dioxide 27 mmol/L (22.0-30.0); Chloride 95 mmol/L (98-107); Chol/HDL Ratio 2.5 (1-3.5); Cholesterol 145 mg/dl (140-200); Estimated Glomerular Filt Rate 110 ml/min (>60); GFR (African American) 133 ML/MIN (>60); Globulin 2.9 g/dL (1.3-3.2); Glucose 89 mg/dl (74-100); HDL Cholesterol 59 mg/dl (40-60); Potassium 4.5 mmoL/L (3.5-5.1); Sodium 136 mmol/L (136-145); Total Protein,Serum 7.3 g/dl (6.3-8.2); Triglycerides 65 mg/dl (30-150); VLDL Cholesterol 13 mg/dL (0-40)
[2022-07-22 13:55] LABS: Direct LDL Cholesterol 68.64 mg/dL (100-129)
[2022-07-22 14:01] LABS: 25-OH Vitamin D, Total 29.5 ng/mL (30-100)
[2022-07-22 14:14] LABS: Thyroid Stimulating Hormone 0.39 uIU/mL (0.465-4.68)
[2022-07-22 14:51] LABS: Erythrocyte Sedimentation Rate 10 mm/hr (0-15)
[2022-07-22 19:53] LABS: Barbiturates Screen,Urine Negative ng/ml (<200)
[2022-07-22 19:54] LABS: Benzodiazepines Screen,Urine Negative ng/ml (<200); Cannabinoid Screen,Urine Positive ng/ml (<50)
[2022-07-22 19:55] LABS: Cocaine Screen,Urine Negative ng/ml (<300); Methadone Screen,Urine Negative ng/ml (<300)
[2022-07-22 19:56] LABS: Opiate Screen,Urine Negative ng/ml (<300)
[2022-07-22 19:57] LABS: Phencyclidine Screen,Urine Negative ng/ml (<25)
[2022-07-29 01:07] LABS: Amphetamine Positive (.); Amphetamine (GC/MS) >3000 ng/mL (Cutoff=500); Amphetamines Positive (.); Methamphetamine Positive (.); Methamphetamine (GC/MS) >3000 ng/mL (Cutoff=500)
== END ==
PROVIDERS: PCP Emergency Medicine; Visit Provider Emergency Medicine
DX: R53.83 Other fatigue (principal); F41.9 Anxiety disorder, unspecified; Z79.899 Other long term (current) drug therapy; E55.9 Vitamin D deficiency, unspecified
CPT/HCPCS: 80053; 80061; 80305; 80324; 82306; 84443; 85025; 85651